=== PATIENT | male | born 1945 | race Two or more races ===

== ENCOUNTER 2021-06-09 19:21 | Emergency (ER) | payer OTHER ==
[~2021-06-09] VITALS: Ht 177.8 cm; Wt 83.9 kg
[2021-06-09 20:29] LABS: Basophils # (auto) 0.2 10 ^3/uL (0-0.2); Basophils % (auto) 2.6 % (0.0-2.0); Eosinophils # (auto) 0.1 10 ^3/uL (0-0.8); Eosinophils % (auto) 2.3 % (0.0-7.0); Hematocrit 38.5 % (41.0-53.0); Hemoglobin 13.6 g/dL (13.5-17.5); Lymphocytes # (auto) 1.7 10 ^3/uL (0.4-5.4); Lymphocytes % (auto) 27.4 % (10.0-50.0); Mean Corpuscular Hemoglobin 33.1 pg (28.0-32.0); Mean Corpuscular Hgb Conc. 35.2 g/dL (32.0-36.0); Mean Corpuscular Volume 94.2 fL (80.0-100.0); Monocytes # (auto) 0.5 10 ^3/uL (0-1.3); Monocytes % (auto) 8.7 % (0.0-12.0); Neutrophils # (auto) 3.6 10 ^3/uL (1.6-8.6); Nucleated Red Blood Cells % 0.1 %; Red Blood Cells 4.09 10^6/uL (4.5-5.90); Red Cell Distribution Width 13.5 % (11.8-14.3); White Blood Cell 6.1 10^3/uL (4.4-10.8)
[2021-06-09 20:46] LABS: Albumin 3.7 g/dL (3.4-5.0); Calcium 8.7 mg/dL (8.5-10.1); Magnesium 1.7 mg/dL (1.6-2.6); Potassium 4.2 mmol/L (3.5-5.1)
[2021-06-09 20:49] LABS: BUN/Creatinine Ratio 13.6; Bilirubin, Total 0.4 mg/dL (0.2-1.0); Total Protein 7.2 g/dL (6.4-8.2)
[2021-06-09 21:04] LABS: Urine Bacteria NONE SEEN /hpf (None Seen); Urine Blood Negative /uL (Negative); Urine Specific Gravity 1.012 (1.001-1.035); Urine WBC 1 /hpf (0 - 3)
[2021-06-10] MEDS ORDERED: levoFLOXacin 250 MG TAB PO ONE (05:45)
[2021-06-10] MEDS: AZTREONAM 1GM INJ 1 GM in D5W 5% 50 ML IV ONE ×2 (08:40→09:22)
== END 2021-06-10 09:26 | disposition short-term general hospital (02) ==
LOC: ER 19:21
DX: R53.1 Weakness (principal); R42 Dizziness and giddiness; J18.9 Pneumonia, unspecified organism; I10 Essential (primary) hypertension; E11.9 Type 2 diabetes mellitus without complications; E78.5 Hyperlipidemia, unspecified; Z88.0 Allergy status to penicillin; Z20.822 Contact with and (suspected) exposure to COVID-19
CPT/HCPCS: 36415; 70450; 71045; 80053; 81001; 83735; 83880; 84484; 85025; 87426; 87804; 93005; 96365; 99285; J7060